=== PATIENT | male | born 1960 | race Asian ===

== ENCOUNTER 2019-09-18 09:05 | Day surgery (SDC) | payer BC ==
[2019-09-18 10:25] VITALS: BMI 25.8
[2019-09-18 11:42] VITALS: TEMP 97.8
[2019-09-18 12:20] VITALS: BP 111/74; PULSE 72
--- NOTE | 2019-09-20 16:13 | PATH ---
Surgical Pathology Report Patient Name: NITHYA FERRARA [facility]. Rec. #: [id number] /Age/Gender: 1960 (Age: 59) / M Account: [id number] Location: [facility]-ENDOSCOPY Taken: 09/16/2019 Received: 09/19/2019 Reported: 09/20/2019 Physicians: Sincere Alexander D.O. Specimen(s) Received SIGMOID FOLD AT 25 CM Clinical History Family history of colon cancer, history of diverticulitis, change in bowel habits Postoperative diagnosis: Diverticulosis, hemorrhoids Final Diagnosis SIGMOID COLON FOLD, 25 CM, BIOPSY: COLONIC MUCOSA WITH SMALL LYMPHOID AGGREGATE AND FOCAL MILD SUPERFICIAL HYPERPLASTIC FEATURES. Electronically Signed Dede Bergeron M.D. Gross Description Received in formalin, labeled "biopsy sigmoid fold at 25 cm" are 4 carrasco, irregular portions of soft tissue ranging from 0.1-0.7 cm. in greatest dimension. The specimens are submitted in toto in one cassette. 09/19/2019 [facility]09/19/2019
== END 2019-09-18 12:15 | disposition home or self-care (01) ==
LOC: JASU-ENDO 09:05
PROVIDERS: ATTEND Internal Medicine Gastroenterology
PROC: 3E0H8GC Introduction of Other Therapeutic Substance into Lower GI, Via Natural or Artificial Opening Endoscopic (ICD-10-PCS; 2019-09-18)
PROC: 0DBN8ZX Excision of Sigmoid Colon, Via Natural or Artificial Opening Endoscopic, Diagnostic (ICD-10-PCS; principal; 2019-09-18 10:15)
DX: Z12.11 Encounter for screening for malignant neoplasm of colon (principal); Z80.0 Family history of malignant neoplasm of digestive organs; K57.30 Diverticulosis of large intestine without perforation or abscess without bleeding; K64.8 Other hemorrhoids; K63.89 Other specified diseases of intestine

== ENCOUNTER 2020-06-03 04:43 | Day surgery (SDC) | payer BC ==
[2020-05-28 09:43] VITALS: BMI 26.6
--- OUTSIDE RECORDS SUMMARY | 2020-06-03 04:46 | XMS ---
:1960 Author Organization [facility] Care Team Providers Name Role Phone Sincere Alexander Unavailable Dawit Alexanderer Unavailable Benjamin, Christopher Unavailable Re-disclosure Warning The records that you are about to access may contain information from federally- assisted alcohol or drug abuse programs. If such information is present, then the following federally mandated warning applies: This information has been disclosed to you from records protected by federal confidentiality rules (42 CFR part 2). The federal rules prohibit you from making any further disclosure of this information unless further disclosure is expressly permitted by the written consent of the person to whom it pertains or as otherwise permitted by 42 CFR part 2. A general authorization for the release of medical or other information is NOT sufficient for this purpose. The Federal rules restrict any use of the information to criminally investigate or prosecute any alcohol or drug abuse patient.The records that you are about to access may contain highly sensitive health information, the redisclosure of which is protected by Article 27-F of the [facility] Public Health law. If you continue you may haveaccess to information: Regarding HIV / AIDS; Provided by facilities licensed or operated by the [facility] Office of Mental Health; or Provided by the [facility] Office for People With Developmental Disabilities. If such information is present, then the following [facility] mandated warning applies: This information has been disclosed to you from confidential records which are protected by state law. State law prohibits you from making any further disclosure of this information without the specific written consent of the person to whom it pertains, or as otherwise permitted by law. Any unauthorized further disclosure in violation of state law may result in a fine or fci sentence or both. A general authorization for the release of medical or other information is NOT sufficient authorization for further disclosure. Encounters Encounter Providers Location Date Indications Data Source(s ) Attender: [facility]07[facility]:00 AM [facility], ) EDT Office Attender: [facility] 05/07/2020 12:00:00 AM ED T MED[facility] ([facility], ) Office Medications Medication Brand Start Product Dose Route Administrative Pharmacy [facility] Indications Reaction Description Data Name Date Form Instructions Instructions Source(s) Famotidine FAMOTI 05/07/ TABLET 60 complet FAMOT IDINE MEDGEN (St 40 MG Oral DINE:2 2019 ed [facility] Tablet 81572 12:00: Medical, FAMOTIDINE: 00 AM PC) 450015 EDT SUPREP 09/10/ LIQUID 1 complet SUPREP LOWELL L MEDGEN (St BOWEL PREP 2019 ed PREP KIT [facility] KIT:[id number] 12:00: Medica l, 00 AM PC) EST Omeprazole OMEPRA 06/20/ complet OMEPRAZ OLE MED[facility] (St OMEPRAZOLE: ZOLE:7 2018 ed [facility] [id number] [id number] 12:00: Medical, 00 AM PC) EST Insurance Providers Payer name Policy type Policy ID Covered Covered republican's Policy P juan / Coverage republican ID relationship to Elam Inf ormation type elam BC EPO [id number] SP [id number] EMPIRE BCBS [id number] (PPO) 78 EMPIRE BCBS [id number] (PPO) 4 BC EPO [id number] SP [id number] 4 Problems, Conditions, and Diagnoses Code Display Name Description Problem Type Effective Data Sour ce(s) Dates K21.9 Gastro-esophageal GASTRO-ESOPHAGEAL Problem 05/07/2020 MEDGEN (St reflux disease REFLUX DISEASE 12:00:00 AM [facility] without esophagitis WITHOUT ESOPHAGITIS [facility], ) R07.9 Chest pain, CHEST PAIN, Problem 05/07/2020 MEDGEN (St unspecified UNSPECIFIED 12:00:00 AM [facility], ) K30 Functional FUNCTIONAL Problem 12/12/2019 MEDGEN (St dyspepsia DYSPEPSIA 12:00:00 AM [facility], ) K76.0 Fatty (change of) FATTY (CHANGE OF) Problem 06/20/2019 MEDGEN (St liver, not LIVER, NOT 12:00:00 AM [facility] elsewhere ELSEWHERE [facility], ) classified CLASSIFIED K57.32 Diverticulitis of DIVERTICULITIS OF Problem 06/20/2019 MEDGEN (St large intestine LARGE INTESTINE 12:00:00 AM [facility] without perforation WITHOUT PERFORATION [facility], ) or abscess without OR ABSCESS WITHOUT bleeding BLEEDING Surgeries/Procedures Procedure Description Date Indications Data Source(s) OFFICE OUTPATIENT VISIT 05/07/2020 MED[facility] EN ([facility] 15 MINUTES 12:00:00 AM [facility], ) OFFICE OUTPATIENT VISIT 12/12/2019 MED[facility] EN ([facility] 15 MINUTES 12:00:00 AM [facility], ) Documentation of current 06/20/2019 MED GEN ([facility] medications (procedure) 12:00:00 AM [facility] [place], ) Documentation of current 06/20/2019 MED GEN ([facility] medications (procedure) 12:00:00 AM [facility], ) Documentation of current 06/20/2019 MED GEN ([facility] medications (procedure) 12:00:00 AM EST [facility], ) Documentation of current 06/20/2019 MED GEN ([facility] medications (procedure) 12:00:00 AM [facility], ) BLOOD OCCULT PEROXIDASE 06/20/2019 MEDG EN ([facility] ACTV QUAL OTHER SOURCES 12:00:00 AM EST [place], ) COLLECTION VENOUS BLOOD 06/20/2019 MED[facility] EN ([facility] VENIPUNCTURE 12:00:00 AM [facility], ) Results ID Date Data Source [id number] 05/29/2020 08:20:00 AM EDT [facility] Name Value Range Interpretation Description Data Sup porting Code Source(s) Document(s ) SARS [facility] coronavirus 2 RNA This lab was ordered by [facility] and reported by [facility]. ID Date Data Source [id number] 05/13/2020 01:14:00 PM EDT [facility] Name Value Range Interpretation Description Data Sup porting Code Source(s) Document(s ) SARS-CoV-2 [facility] (COVID-19) RNA panel - Unspecified specimen by MARKIE with probe detection This lab was ordered by [facility] and reported by [facility]. ID Date Data Source [id number] 03/21/2020 11:08:00 AM EDT [facility] Name Value Range Interpretation Description Data Sup porting Code Source(s) Document(s ) SARS [facility] coronavirus 2 RNA This lab was ordered by [facility] and reported by [facility]. ID Date Data Source [id number] 06/20/2019 12:00:00 AM EST [facility] Name Value Range Interpretation Code Description Data Ashlyn rce(s) Supporting Document(s ) C-Reactive 11 mg/L Above high normal [facility] (St Protein, [facility]) ID Date Data Source [id number] 06/20/2019 12:00:00 AM EST [facility] ([facility] Name Value Range Interpretation Code Description Data Supporting Source(s) Document(s ) Hep C 0.1 s/co Normal (applies to [facility] (St Virus Ab ratio non-numeric [facility] results) Medical, ) ID Date Data Source [id number] 06/20/2019 12:00:00 AM EST [facility] Name Value Range Interpretation Description Data Sup porting Code Source(s) Document(s ) Hepatitis A Negative Normal (applies [facility] (St virus IgM Ab to non-numeric [facility] [Presence] in results) Medical, ) Serum or Plasma by Immunoassay Hepatitis A Negative Normal (applies [facility] (St virus Ab to non-numeric [facility] [Presence] in results) Medical, ) Serum by Immunoassay ID Date Data Source [id number] 06/20/2019 12:00:00 AM EST [facility] ([facility] Name Value Range Interpretation Description Data Sup porting Code Source(s) Document(s ) Hepatitis B Negative Normal (applies [facility] (St virus core Ab to non-numeric [facility] [Presence] in results) [facility], ) Serum or Plasma by Immunoassay HBsAg Screen Negative Normal (applies [facility] (St to non-numeric [facility] results) [facility], ) Hep B Surface Non Normal (applies [facility] (St Ab, Qual Reactive to non-numeric [facility] results) [facility], ) ID Date Data Source [id number] 06/20/2019 12:00:00 AM EST [facility] ([facility], ) Name Value Range Interpretation Description Data Sup porting Code Source(s) Document(s ) Fibrosis Score 0.17 Normal (applies [facility] (S t to non-numeric [facility] results) [facility], ) Steatosis Score 0.54 Above high normal [facility] ([facility], ) Fibrosis stage Normal (applies [facility] (S t to non-numeric [facility] results) [facility], ) Steatosis Grade Normal (applies MED[facility] ( St to non-numeric [facility] results) [facility], ) PARDO Score 0.50 Above high normal [facility] ([facility], ) PARDO Grade Normal (applies [facility] (St to non-numeric [facility] results) [facility], ) Height: 69 in Normal (applies MEDGEN (St to non-numeric [facility] results) [facility], ) Weight: 181 LBS Normal (applies MEDGEN (St to non-numeric [facility] results) [facility], ) Haptoglobin 253 Above high normal [facility] (St [Mass/volume] in mg/dL [facility] Serum or Plasma [facility], ) by Nephelometry Apolipoprotein 131 Normal (applies [facility] (S t A-1 mg/dL to non-numeric [facility] results) [facility], ) Alpha 190 Normal (applies MED[facility] (St 2-Macroglobulins, mg/dL to non-numeric [facility] Qn results) [facility], ) Bilirubin, Total 0.3 Normal (applies MEDGEN (St mg/dL to non-numeric [facility] results) [facility], ) ALT (SGPT) P5P 31 IU/L Normal (applies MEDGEN (S t to non-numeric [facility] results) [facility], ) GGT 42 IU/L Normal (applies MED[facility] (St to non-numeric [facility] results) [facility], ) Cholesterol, 237 Above high normal [facility] (S t Total mg/dL [facility], ) AST (SGOT) P5P 27 IU/L Normal (applies [facility] (S t to non-numeric [facility] results) Medical, ) Glucose, Serum 82 mg/dL Normal (applies [facility] (S t to non-numeric [facility] results) Medical, ) Interpretations: Normal (applies MED[facility] (St to non-numeric [facility] results) Medical, ) Triglycerides 138 Normal (applies [facility] (St mg/dL to non-numeric [facility] results) Medical, ) Fibrosis Scoring: Normal (applies [facility] (St to non-numeric [facility] results) Medical, ) Steatosis Grading Normal (applies MEDGEN (St to non-numeric [facility] results) [facility], ) PARDO Scoring Normal (applies MEDGEN (St to non-numeric [facility] results) Medical, ) Comment: Normal (applies MEDGEN (St to non-numeric [facility] results) Medical, ) Limitations: Normal (applies MEDGEN (St to non-numeric [facility] results) [facility], ) Procedure Social History Code Duration Value Status Description Data Source(s ) Smoking 05/07/2020 [place] Never [facility] (St 12:00:00 AM EDT smoke, chewed smoke, chewed [facility], tobacco tobacco Occasional ) Occasional ETOH ETOH Denied Denied illicit illicit drugs used drugs used Smoking 05/07/2020 Unknown if ever completed Unknown if ever MEDG EN (St 12:00:00 AM EDT smoked smoked [facility], ) Vital Signs ID Date Data Source UNK Name Value Range Interpretation Code Description Data Source(s) Heart rate 80 /min 80 /min [facility] ([facility] , ) Inhaled oxygen 97 % 97 % [facility] (St concentration [facility], ) Body mass index 27.5 kg/m2 27.5 kg/m2 MEDGEN (S t (BMI) [Ratio] [facility], ) Diastolic blood 82 mm[Hg] 82 mm[Hg] MEDGEN (S t pressure [facility] , ) Systolic blood 126 mm[Hg] 126 mm[Hg] MEDGEN (St pressure [facility] , ) Body weight 186 lb 186 lb [facility] ([facility] Body height 69 in 69 in MEDGEN ([facility]) Heart rate 97 /min 97 /min MED[facility] ([facility]) Inhaled oxygen 98 % 98 % MEDGEN ([facility]) Body mass index 27.5 kg/m2 27.5 kg/m2 MEDGEN (S t (BMI) [Ratio] [facility]) Diastolic blood 86 mm[Hg] 86 mm[Hg] [facility] ([facility]) Systolic blood 142 mm[Hg] 142 mm[Hg] MEDGEN ([facility]) Body weight 186 lb 186 lb MEDGEN ([facility]) Body height 69 in 69 in [facility] Heart rate 84 /min 84 /min [facility] ([facility]) Respiratory rate 14 /min 14 /min MEDGEN ( [facility]) Body mass index 26.7 kg/m2 26.7 kg/m2 MEDGEN (S t (BMI) [Ratio] [facility]) Diastolic blood 80 mm[Hg] 80 mm[Hg] [facility] ([facility] Systolic blood 120 mm[Hg] 120 mm[Hg] MEDGEN ([facility]) Body weight 181 lb 181 lb MEDGEN ([facility]) Body height 69 in 69 in [facility] ([facility])
[2020-06-03 09:58] VITALS: TEMP 97.8
[2020-06-03 10:24] VITALS: BP 112/75; PULSE 70
--- NOTE | 2020-06-04 18:32 | PATH ---
Surgical Pathology Report Patient Name: NITHYA FERRARA [facility]. Rec. #: [id number] /Age/Gender: 1960 (Age: 60) / M Account: [id number] Location: [facility] Taken: 06/03/2020 Received: 06/03/2020 Reported: 06/04/2020 Physicians: Sincere Alexander D.O. Specimen(s) Received A: DUODENAL BULB B: ANTRAL ERYTHEMA C: ANGULARIS AND BODY D: GASTRIC POLYPS Clinical History Dyspepsia Postoperative diagnosis: Gastritis Final Diagnosis A. DUODENAL BULB, BIOPSY: HETEROTOPIC GASTRIC MUCOSA WITH MILD ACUTE AND CHRONIC INFLAMMATION. B. ANTRUM ERYTHEMA, BIOPSY: GASTRIC MUCOSA WITH CHRONIC GASTRITIS AND VASCULAR CONGESTION IN THE LAMINA PROPRIA. IMMUNOSTAIN FOR H. PYLORI IS NEGATIVE. NEGATIVE FOR INTESTINAL METAPLASIA. C. ANGULARIS AND BODY, BIOPSY: GASTRIC MUCOSA WITH MILD CHRONIC GASTRITIS. IMMUNOSTAIN FOR H. PYLORI IS NEGATIVE. NEGATIVE FOR INTESTINAL METAPLASIA. D. GASTRIC POLYPS, BIOPSY: FUNDIC GLAND POLYP, TWO FRAGMENTS. IMMUNOSTAIN FOR H. PYLORI IS NEGATIVE. Electronically Signed Marlena Carvalho M.D. Gross Description A. Received in formalin, labeled "duodenal bulb biopsy" is a carrasco, irregular portion of soft tissue measuring 0.3 cm. in greatest dimension. The specimen is submitted in toto in one cassette. B. Received in formalin, labeled "antral erythema biopsy" are 3 carrasco, irregular portions of soft tissue ranging from 0.2-0.5 cm. in greatest dimension. The specimens are submitted in toto in one cassette. C. Received in formalin, labeled "angularis and body biopsy" are 5 carrasco, irregular portions of soft tissue ranging from 0.1-0.4 cm. in greatest dimension. The specimens are submitted in toto in one cassette. D. Received in formalin, labeled "gastric polyps biopsy" are 2 carrasco, irregular portions of soft tissue measuring 0.2 and 0.3 cm. in greatest dimension. The specimens are submitted in toto in one cassette. 06/03/2020 saudi/06/03/2020
== END 2020-06-03 10:20 | disposition home or self-care (01) ==
LOC: JASU-ENDO 04:43
PROVIDERS: ATTEND Internal Medicine Gastroenterology
PROC: 0DB68ZX Excision of Stomach, Via Natural or Artificial Opening Endoscopic, Diagnostic (ICD-10-PCS; 2020-06-03)
PROC: 0DB98ZX Excision of Duodenum, Via Natural or Artificial Opening Endoscopic, Diagnostic (ICD-10-PCS; principal; 2020-06-03 09:00)
DX: K31.7 Polyp of stomach and duodenum (principal); K29.50 Unspecified chronic gastritis without bleeding; K29.80 Duodenitis without bleeding
CPT/HCPCS: 88305-TC; 88342-TC

== ENCOUNTER 2023-02-01 06:00 | Day surgery (SDC) | payer BC ==
[~2023-02-01 06:00] MED LIST: DEXAMETHASONE SOD PHOSPHATE 10 MG/1 ML VIAL IVPUSH ONE; IOHEXOL 180 MG/1 ML ML IJ ONE; LIDOCAINE HCL 1% PRESERVATIVE FREE - 30ML VIAL IJ ONE
[2023-02-01 09:50] VITALS: RESP 18; TEMP 97.1; BMI 25.8
[2023-02-01] MEDS ORDERED: ACETAMINOPHEN 500 MG TABLET (FP) PO PRN (10:28)
[2023-02-01] MEDS ORDERED: DEXAMETHASONE SOD PHOSPHATE 10 MG/1 ML VIAL IVPUSH ONE ×2 (11:02→11:03)
[2023-02-01] MEDS ORDERED: IOHEXOL 180 MG/1 ML ML IJ ONE (11:02)
[2023-02-01] MEDS ORDERED: LIDOCAINE HCL 1% PRESERVATIVE FREE - 30ML VIAL IJ ONE ×2 (11:02→11:03)
[2023-02-01 12:26] VITALS: BP 129/81; PULSE 78
== END 2023-02-01 12:00 | disposition home or self-care (01) ==
LOC: JASU-SURG 06:00
PROVIDERS: ATTEND Pain Medicine Pain Medicine
PROC: 3E0R3BZ Introduction of Anesthetic Agent into Spinal Canal, Percutaneous Approach (ICD-10-PCS; 2023-02-01)
PROC: 3E0R33Z Introduction of Anti-inflammatory into Spinal Canal, Percutaneous Approach (ICD-10-PCS; principal; 2023-02-01 10:15)
DX: M54.16 Radiculopathy, lumbar region (principal)
CPT/HCPCS: 76000-TC-FY; J1100

== ENCOUNTER 2023-06-21 04:32 | Day surgery (SDC) | payer BC ==
[2023-06-20 14:50] VITALS: BMI 27.3
[2023-06-21 07:01] VITALS: RESP 20; TEMP 97.8
[2023-06-21] MEDS ORDERED: LIDOCAINE HCL/PF 1% SDV 5ML VIAL ONE (07:04)
[2023-06-21] MEDS ORDERED: DEXAMETHASONE SOD PHOSPHATE 10 MG/1 ML VIAL ONE (07:05)
[2023-06-21] MEDS ORDERED: DEXAMETHASONE SOD PHOSPHATE 10 MG/1 ML VIAL IVPUSH ONE (08:33)
[2023-06-21] MEDS ORDERED: IOHEXOL 180 MG/1 ML ML IJ ONE (08:33)
[2023-06-21] MEDS ORDERED: LIDOCAINE HCL 1% PRESERVATIVE FREE - 30ML VIAL IJ ONE (08:36)
[2023-06-21] MEDS ORDERED: ACETAMINOPHEN 500 MG TABLET (FP) PO PRN (09:02)
[2023-06-21 09:13] VITALS: BP 133/78; PULSE 78
== END 2023-06-21 09:00 | disposition home or self-care (01) ==
LOC: JASU-SURG 04:32
PROVIDERS: ATTEND Pain Medicine Pain Medicine
PROC: 3E0R3BZ Introduction of Anesthetic Agent into Spinal Canal, Percutaneous Approach (ICD-10-PCS; 2023-06-21)
PROC: 3E0R33Z Introduction of Anti-inflammatory into Spinal Canal, Percutaneous Approach (ICD-10-PCS; principal; 2023-06-21 08:00)
DX: M54.16 Radiculopathy, lumbar region (principal)
CPT/HCPCS: 76000-TC-FY; J1100

== ENCOUNTER 2023-11-08 05:08 | Day surgery (SDC) | payer BC ==
[2023-11-04 13:08] VITALS: BMI 27.3
[2023-11-08] MEDS ORDERED: LIDOCAINE HCL/PF 1% SDV 5ML VIAL ONE (07:19)
[2023-11-08] MEDS ORDERED: DEXAMETHASONE SOD PHOSPHATE 10 MG/1 ML VIAL ONE (09:44)
[2023-11-08 10:21] VITALS: RESP 18
[2023-11-08] MEDS: LIDOCAINE HCL 1% PRESERVATIVE FREE - 30ML VIAL IJ ONE ×2 (11:43)
[2023-11-08] MEDS: IOHEXOL 180 MG/1 ML ML IJ ONE ×3 (11:43)
[2023-11-08] MEDS: DEXAMETHASONE SOD PHOSPHATE 10 MG/1 ML VIAL IVPUSH ONE (11:44)
[2023-11-08] MEDS ORDERED: ACETAMINOPHEN 500 MG TABLET (FP) PO PRN (12:30)
[2023-11-08 12:40] VITALS: BP 110/73; PULSE 63; TEMP 97.1
== END 2023-11-08 12:20 | disposition home or self-care (01) ==
LOC: JASU-SURG 05:08
PROVIDERS: ATTEND Pain Medicine Pain Medicine
PROC: 3E0R3BZ Introduction of Anesthetic Agent into Spinal Canal, Percutaneous Approach (ICD-10-PCS; 2023-11-08)
PROC: 3E0R33Z Introduction of Anti-inflammatory into Spinal Canal, Percutaneous Approach (ICD-10-PCS; principal; 2023-11-08 11:30)
DX: M54.16 Radiculopathy, lumbar region (principal)
CPT/HCPCS: 76000-TC-FY; J1100